=== PATIENT | male | born 1960 | race Caucasian/White ===

== ENCOUNTER 2016-08-22 23:20 | Emergency (ER) | payer OTHER ==
[~2016-08-22] VITALS: Ht 170.2 cm; Wt 72.6 kg
[~2016-08-22 23:20] MED LIST: ASPIR 8181 MG PO; ATORVASTATIN CA40 MG PO; CARVEDILOL6.25 MG PO; COLACE100 MG PO; COREG3.125 MG PO; COREG6.25 MG PO; COZAAR 25 MG TA25 M1 PO; FERREX 150 PLU1 EAC1 PO; GLIPIZIDE ER2.5 MG PO; GLIPIZIDE XL2.5 MG PO; HYDROCODONE-AP1 EAC6 PO; LISINOPRIL2.5 MG PO; METOCLOPRA10 MG/101 PO; MIRALAX17 GM PO; PACERONE 200 M200 M1 PO; PROTONIX 20 MG20 M1 PO; PROTONIX40 M2 PO; ST. JOSEPH ASPI81 MG PO; XARELTO15 MG PO; XARELTO20 MG PO
[2016-08-22] MEDS ORDERED: CARVEDILOL12.5 MG PO (23:31)
[2016-08-23 00:08] LABS: URINE BILIRUBIN 1+ (Negative); URINE BLOOD 3+ (Negative); URINE COLOR BROWN; URINE GLUCOSE-RANDOM* NEGATIVE (Negative); URINE KETONES NEGATIVE (Negative); URINE NITRITE NEGATIVE (Negative); URINE PROTEIN (DIPSTICK) 2+ (Negative); URINE SPECIFIC GRAVITY 1.025 (1.003-1.035)
[2016-08-23 00:12] LABS: ICTOTEST (BILI CONFIRMATORY) Positive (Negative)
[2016-08-23 00:33] LABS: CASTS None Seen /LPF (None Seen); SQUAMOUS 0-3 Few /LPF (0-3); URINE RBC >20 Many /HPF (0-2)
[2016-08-23 00:35] LABS: BACTERIA 1-9 Few /HPF (None Seen); CRYSTALS None Seen /LPF (None Seen); URINE WBC 0-5 Rare /HPF (0-5)
[2016-08-23 00:42] LABS: ABSOLUTE NEUTROPHILS 2.9 thou/uL (1.4-8.2); BASOPHILS 1.2 % (0.0-2.0); EOSINOPHILS 8.8 % (0.0-3.0); HEMATOCRIT 32.9 % (42.0-52.0); HEMOGLOBIN 11.4 gm/dL (14.0-18.0); LYMPHOCYTES 32.6 % (24.0-44.0); MCH 31.6 pg (26.0-34.0); MCHC 34.7 g/dL (28.0-37.0); MONOCYTES 8.6 % (1.0-8.0); PLATELET COUNT 208 thou/uL (150-400); POLYS 48.8 % (36.0-66.0); RBC 3.62 mil/uL (4.50-6.00); RDW 14.6 % (10.5-14.5); WBC 5.9 thou/uL (4.0-11.0)
[2016-08-23 00:47] LABS: MANUAL DIFF NO
[2016-08-23 00:50] LABS: CALCIUM 8.9 mg/dL (8.5-10.1); CREATININE 1.7 mg/dL (0.7-1.3); POTASSIUM 4.1 mmol/L (3.5-5.1)
[2016-08-23 00:55] LABS: APTT 30.5 Seconds (24.5-32.8); INR 1.2; PROTIME 12.4 Seconds (9.3-11.4)
== END 2016-08-23 02:42 | disposition home or self-care (01) ==
LOC: ER 23:20
PROVIDERS: Emergency Medicine; Physician Assistant
DX: R31.0 Gross hematuria (principal); I11.0 Hypertensive heart disease with heart failure; I50.9 Heart failure, unspecified; E11.9 Type 2 diabetes mellitus without complications; Z95.5 Presence of coronary angioplasty implant and graft

== ENCOUNTER 2019-01-08 12:28 | Emergency (ER) | payer OTHER ==
[~2019-01-08] VITALS: Ht 170.2 cm; Wt 74.1 kg
[~2019-01-08 12:28] MED LIST changes: +CARVEDILOL12.5 MG PO
[2019-01-08 14:03] LABS: ABSOLUTE NEUTROPHILS 5.6 thou/uL (1.4-8.2); BASOPHILS 0.9 % (0.0-2.0); EOSINOPHILS 0.4 % (0.0-3.0); HEMATOCRIT 41.7 % (42.0-52.0); HEMOGLOBIN 14.1 gm/dL (14.0-18.0); LYMPHOCYTES 12.4 % (24.0-44.0); MCH 29.8 pg (26.0-34.0); MCHC 33.8 g/dL (28.0-37.0); MCV 88.3 fL (80.0-100.0); MONOCYTES 4.9 % (1.0-8.0); PLATELET COUNT 234 thou/uL (150-400); POLYS 81.4 % (36.0-66.0); RBC 4.73 mil/uL (4.50-6.00); RDW 12.3 % (10.5-14.5); WBC 6.9 thou/uL (4.0-11.0)
[2019-01-08 14:13] LABS: ANION GAP 10 mmol/L (7-16); BUN 21 mg/dL (7-18); CALCIUM 10.1 mg/dL (8.5-10.1); CHLORIDE 99 mmol/L (98-107); CO2 26 mmol/L (21-32); CREATININE 1.3 mg/dL (0.7-1.3); GLUCOSE 184 mg/dL (74-106); POTASSIUM 4.3 mmol/L (3.5-5.1); SODIUM 135 mmol/L (136-145)
[2019-01-08 14:22] LABS: TROPONIN-I <0.06 ng/mL (<0.06)
[2019-01-08 15:59] VITALS: BP 169/96
--- NOTE | 2019-01-09 16:56 | EKG ---
[address] [address] ELECTROCARDIOGRAM REPORT Name: FLORENCIO TORRES Room #: DEP [facility] [id number] Admission: 01/08/19 Attend Phys: Discharge: 01/08/19 Date of : 58 Report #: [id number] THIS REPORT FOR: //name// [facility] ED Test Date: 2019-01-08 Test Time: 12:36:27 Pat Name: FLORENCIO TORRES Department: Room: Gender: M [address] Office Assistant: MAGDALENA : 1960 Requested By: Bk Pacheco Order Number: [id number] MD: Reji Zavaleta Measurements Intervals [place] Rate: 99 P: 46 IN: 154 QRS: 53 QRSD: 82 T: 88 QT: 356 QTc: 457 Interpretive Statements Sinus rhythm Poor R wave progression Compared to ECG 05/12/2016 18:53:12 No significant changes Electronically Signed On 01-09-2019 16:56:39 READING TEACHER by Reji Zavaleta [email or web address] <ELECTRONICALLY SIGNED> By: Reji Zavaleta MD, [facility] 01/09/19 1656 1236 1236 Reji Zavaleta MD, FACC /EPI
== END 2019-01-08 16:00 | disposition home or self-care (01) ==
LOC: ER 12:28
PROVIDERS: Emergency Medicine
DX: G43.909 Migraine, unspecified, not intractable, without status migrainosus (principal); I11.0 Hypertensive heart disease with heart failure; I50.9 Heart failure, unspecified; E11.9 Type 2 diabetes mellitus without complications; Z95.1 Presence of aortocoronary bypass graft; Z91.14 Patient's other noncompliance with medication regimen

== ENCOUNTER → 2019-04-20 | Outpatient (CLI) | payer OTHER | LOC: SJCVC 11:48 | DX: I21.09 ST elevation (STEMI) myocardial infarction involving other coronary artery of anterior wall (principal); R94.31 Abnormal electrocardiogram [ECG] [EKG]; I25.5 Ischemic cardiomyopathy; I50.20 Unspecified systolic (congestive) heart failure; E78.5 Hyperlipidemia, unspecified; E11.9 Type 2 diabetes mellitus without complications; Z87.891 Personal history of nicotine dependence; Z79.899 Other long term (current) drug therapy ==

== ENCOUNTER → 2019-10-24 | Outpatient (CLI) | payer OTHER | LOC: SJCVCIMAG 09:02 | PROVIDERS: ATTEND Internal Medicine | DX: I25.10 Atherosclerotic heart disease of native coronary artery without angina pectoris (principal); R94.31 Abnormal electrocardiogram [ECG] [EKG]; I25.5 Ischemic cardiomyopathy; I11.0 Hypertensive heart disease with heart failure; I50.20 Unspecified systolic (congestive) heart failure; E11.9 Type 2 diabetes mellitus without complications; E78.5 Hyperlipidemia, unspecified; Z95.1 Presence of aortocoronary bypass graft; Z79.899 Other long term (current) drug therapy; Z87.891 Personal history of nicotine dependence ==